=== PATIENT | female | born 1965 | race Caucasian/White ===

== ENCOUNTER 2018-07-05 15:17 | Observation (INO) | payer MEDICARE ==
--- NOTE | ~2018-07-05 | OP ---
PATIENT NAME: CARMEN FRANKEL MEDICAL RECORD: [id number] :69 LOCATION:[facility] ADMISSION DATE:07/05/18 SURGEON: SANGEETA HOLBROOK MD DATE OF OPERATION: 07/06/2018 DATE OF SERVICE: 07/06/2018 PROCEDURES: 1. Left heart catheterization. 2. Selective coronary angiography. 3. Left ventriculogram. INDICATION: Chest pain compatible with angina. PROCEDURE IN DETAIL: After informed consent was obtained and after a detailed description of risks, benefits as well as alternative therapies, the patient elected to proceed with angiogram and heart catheterization. The right radial area was prepped and draped in normal sterile fashion. Right radial artery was cannulated via modified Seldinger technique with placement of 5-Welsh sheath. All catheters exchanged through this sheath. FINDINGS: Left ventriculogram was performed in standard 30-degree EASTON view, reveals good cardiac wall motion throughout all segments. Overall ejection fraction estimated 60%. SELECTIVE CORONARY ANGIOGRAPHY: Left main, left anterior descending, left circumflex, right coronary artery are all smooth-walled vessels with no angiographic evidence of coronary artery disease. OVERALL IMPRESSION: 1. No angiographic evidence of coronary artery disease. 2. Normal left heart pressures. 3. Normal left ventricular systolic function. Chest pain is noncardiac in etiology. No further cardiac workup needs to be ascertained. TRANSINT:[id number] Voice Confirmation ID: [id number] DOCUMENT ID: [id number] SANGEETA HOLBROOK MD at 0924 CC: [id number] DICTATION DATE: 07/06/18 1257 DIRECTOR GRAPHICS: 07/06/18 1310 DIS IN 07/06/18 [id number] [place] [address]
--- NOTE | ~2018-07-05 | HEMODYNAMI ---
PATIENT:CARMEN FRANKEL MEDICAL RECORD: [id number] : 69 LOCATION:[facility]2114 ADMISSION DATE: 07/05/18 Generatedon:07/06/201812:58 Patient name: CARMEN FRANKEL Patient #: [id number] SSN: DO B: 1965 Date of study: 07/06/2018 Page: Of Hemodynamic Procedure Report Patient Data Patient Demographics Procedure consent was obtained First Name: CARMEN Gender: Female Last Name: JOSTIN : 1965 Patient #: [id number] Age: 52 year(s) Race: Unknown Additional ID: [id number] Contact details [address]: [address] [place] [address] State: [place] City: [place] Zip code: [address] Past Medical History Allergies Allergen Reaction Date Comments Reported Other allergy 07/06/2018 CIPRO, TETANUS, Penicillins 07/06/2018 Admission Admission Data Admission Date: 07/05/2018 Admission Time: 17:44 Room #: 2114 Procedure Procedure Types Cath Procedure Diagnostic Procedure LHC LHC w/Coronaries Procedure Description Procedure Date Procedure Date: 07/06/2018 Procedure Start Time: 12:45 Procedure End Time: 12:57 Procedure Staff Name Function Home Casey MD Performing Physician Yolanda Caruso RT Monitor Laura Pitts RN Nurse Abraham Smith RT Scrub Procedure Data Cath Procedure Fluoroscopy Diagnostic fluoroscopy Total fluoroscopy Time: 1.4 time: 1.4 min min Diagnostic fluoroscopy Total fluoroscopy dose: 354 dose: 354 mGy mGy Contrast Material Contrast Material Type Amount (ml) Isovue 300 45 Entry Location Entry Primary Successful Side Size Upsize Upsize Entry Closure Gill ccessful Closure Location (Fr) 1 (Fr) 2 (Fr) Remarks Device Remarks Radial Right 6 Fr Mechanical artery Short Compression Estimated blood loss: 5 ml Diagnostic catheters Device Type Used For End Catheter Placement DIAGNOSTIC Freeman 110cm 5 LV Angiography Fr catheter ([id number]) DIAGNOSTIC Freeman 110cm 5 Left Coronary Fr catheter ([id number]) Angiography DIAGNOSTIC Freeman 110cm 5 Right Coronary Fr catheter ([id number]) Angiography Procedure Complications No complications Procedure Medications Medication Administration Route Dosage 0.9% NaCl I.V. 100 ml/hr Oxygen etCO2 Nasal cannula 2 l/min Lidocaine 2% added to field 20 Heparin Flush Bag added to field 2 bags (1000units/500ml NS) Versed I.V. 2 mg Fentanyl 100 mcg Versed I.V. 1 mg Hemodynamics Rest Heart Rate: 72 (bpm) Pressure Samples Time Site Value (mmHg) Purpose Heart Use Rate(bpm) 12:49 LV 117/5,12 Snapshot 86 Snapshots Pre Cath Intra NCS Post Cath Vital Signs Time Heart Resp SPO2 etCO2 NIBP (mmHg) Rhythm Pain Sedation Rate (ipm) (%) (mmHg) Status Level (bpm) 12:30:40 71 16 95 27 128/78(104) NSR 0 (11) 10(A) , No pain 12:34:55 73 10 97 31.5 129/79(101) NSR 0 (11) 10(A) , No pain 12:39:12 75 13 96 27.8 125/78(105) NSR 0 (11) 10(A) , No pain 12:43:27 73 12 97 30 130/78(102) NSR 0 (11) 10(A) , No pain 12:47:42 75 12 96 27 123/77(101) NSR 0 (11) 10(A) , No pain 12:51:54 87 10 98 25.5 111/76(92) NSR 0 (11) 10(A) , No pain 12:56:13 82 12 90 27 111/68(93) NSR 0 (11) 10(A) , No pain Medications Time Medication Route Dose Verified Delivered Reason Notes Eff ectiveness by by 12:34:50 0.9% NaCl I.V. 100 Home Laura used for ml/hr Jacinto Pitts senior cytotechnologist 12:34:59 Oxygen etCO2 2 Home Laura used for Nasal l/min Jacinto Pitts procedure cannula RN 12:35:07 Lidocaine 2% added 20ml Home Bhat for local to vial Jacinto Casey MD anesthetic field 12:35:14 Heparin Flush added 2 Home Home used for Bag to bags Jacinto Casey MD procedure (1000units/500ml field NS) 12:44:19 Fentanyl 100 Home Sanchez for mcg Jacinto Pitts sedation RN 12:44:51 Versed I.V. 2 mg Home Sanchez for Jacinto Pitts sedation RN 12:49:33 Versed I.V. 1 mg Home Sanchez for Jacinto Pitts sedation elevator installer Log Time Note 12:07:44 Time tracking: Regular hours (M-F 7:00 - 5:00) 12:07:49 Plan of Care:Hemodynamics will remain stable., Cardiac rhythm will remain stable., Comfort level will be maintained., Respiratory function will remain adequate., Patient/ family verbilizes understanding of procedure., Procedure tolerated without complication., Recovers from procedure without complications.. 12:11:03 Yolanda Counts RT(R) sent for patient. Start room use. 12:23:21 Patient received from Med II to CCL 1 Alert and oriented. Tansferred to table in Supine position. 12:23:22 Warm blankets applied, and jose f hugger turned on for patient comfort. 12:23:23 Correct patient and procedure confirmed by team. 12:23:24 Signed procedure consent form obtained from patient. 12:23:38 ER H&P FROM DIONI ON CHART COMPLETED ON 07/05/18 12:23:38 H&P Date Dictated: 07/05/2018 Within 30 days and on chart.. 12:23:48 Pre-procedure instructions explained to patient. 12:23:49 Pre-op teaching completed and patient verbalized understanding. 12:23:50 Family in waiting room. 12:23:52 Patient NPO since Midnight. 12:23:54 ECG and BP/O2 sat monitors applied to patient. 12:29:35 Vital chart was started 12:34:27 Full Disclosure recording started 12:34:35 Rhythm: sinus rhythm 12:34:38 Baseline sample Acquired. 12:34:50 0.9% NaCl 100 ml/hr I.V. was administered by Laura Pitts RN; used for procedure; 12:34:59 Oxygen 2 l/min etCO2 Nasal cannula was administered by Laura Pitts RN; used for procedure; 12:34:59 Patient allergic to Other allergyCIPRO, TETANUS, 12:35:06 Patient allergic to Penicillins 12:35:07 Lidocaine 2% 20ml vial added to field was administered by Home Casey MD; for local anesthetic; 12:35:14 Heparin Flush Bag (1000units/500ml NS) 2 bags added to field was administered by Home Casey MD; used for procedure; 12:38:22 Is the patient allergic to Iodine/contrast media? No. 12:38:23 Is patient on blood thinner?No 12:38:32 Patient diabetic? Yes. 12:38:33 If diabetic: On Metformin? Yes 12:38:37 If on Metformin: Last Dose? 07/05/2018 12:38:42 Previous problem with sedation/anesthesia? No ? 12:38:45 Snore? Yes 12:38:46 Sleep apnea? No 12:38:47 Deviated septum? No 12:38:48 Opens mouth fully? Yes 12:38:49 Sticks out tongue? Yes 12:38:51 Airway obstruction? No ? 12:38:54 Dentures? No ? 12:38:58 Pre procedure: right dorsailis pedis pulse 2+ Normal; easily identifiable; not easily obliterated 12:38:59 Modified Dm's test Ulnar < 7 seconds 12:39:01 Patient pain scale 0/10 ?. 12:39:07 IV patent on arrival in right forearm with 0.9% NaCl at O. 12:39:10 Lab results completed and on chart. 12:39:15 Right Radial & Right Groin area was prepped with chlora-prep and draped in sterile fashion 12:39:16 Alarms reviewed by R. N. 12:39:16 Sharps counted by scrub and verified by R.N. 12:39:18 Final Timeout: patient, procedure, and site verified with staff and physician. All members of the team are in agreement. 12:39:20 Right Radial & Right Groin site verified by team. 12:39:27 Physical assessment completed. ASA score P 2 - A patient with mild systemic disease as per Home Casey MD. 12:39:31 Sedation plan: IV Moderate Sedation Medication:Versed, Fentanyl 12:43:17 Use device set Radial Dx or PCI 12:43:18 ACIST Syringe (33853) opened to sterile field. 12:43:18 Medline Cath Pack ([id number]) opened to sterile field. 12:43:19 Bag Decanter (2002S) opened to sterile field. 12:43:19 DIAGNOSTIC WIRE .035 260cm J wire (908013) opened to sterile field. 12:43:20 ACIST Hand Control (25452) opened to sterile field. 12:43:20 ACIST Manifold (86954) opened to sterile field. 12:43:21 Tegaderm 4 x 4 (1626W) opened to sterile field. 12:43:22 MBrace Wrist Support ([id number]) opened to sterile field. 12:43:23 SHEATH 6Fr Prelude Radial ([id number]) opened to sterile field. 12:44:19 Fentanyl 100 mcg was administered by Laura Pitts RN; for sedation; 12:44:51 Versed 2 mg I.V. was administered by Laura Pitts RN; for sedation; 12:45:13 Procedure started. 12:45:19 Local anesthetic to right radial artery with Lidocaine 2% by Home Casey MD.INITIAL ACCESS ONLY 12:47:06 A 6 Fr Short sheath was inserted into the Right Radial artery 12:47:44 A DIAGNOSTIC Freeman 110cm 5 Fr catheter (145791) was advanced over the wire and used for LV Angiography. 12:49:33 Versed 1 mg I.V. was administered by Laura Pitts RN; for sedation; 12:49:52 LV gram done using EASTON 12:49:57 EF : 60 % 12:50:00 Injector settings: Ml/sec: 5, Volume: 15, 12:50:37 A DIAGNOSTIC Freeman 110cm 5 Fr catheter (124243) was advanced over the wire and used for Right Coronary Angiography. 12:50:45 A DIAGNOSTIC Freeman 110cm 5 Fr catheter (534910) was advanced over the wire and used for Left Coronary Angiography. 12:51:20 Catheter removed. 12:52:01 Sheath removed intact; hemostasis achieved with Mechanical Compression to the Right Radial artery. 12:52:05 Procedure ended.(Physican Out) 12:52:25 Fluoroscopy time 01.40 minutes. 12:52:29 Fluoroscopy dose: 354 mGy 12:52:29 Flurop Dose total: 354 12:52:35 Contrast amount:Isovue 300 45ml. 12:52:36 Sharps counted by scrub and verified by R.N. 12:52:41 Insertion/operative site no bleeding no hematoma. 12:52:52 Post right radial artery:stable, clean and dry 12:52:54 Post Procedure Pulses reassessed and unchanged 12:52:56 Post-procedure physical assessment completed. ASA score P 2 - A patient with mild systemic disease as per Home Casey MD. 12:52:58 TR BAND Standard ([id number]) opened to sterile field. 12:53:02 Post procedure rhythm: unchanged. 12:53:04 Estimated blood loss: 5 ml 12:53:06 Post procedure instruction explained to patient.Patient verbalizes understanding. 12:53:06 Patient needs reinforcement of post procedure teaching. 12:53:27 Procedure Complication : No complications 12:53:30 See physician's report for complete and final results. 12:53:44 Procedure and supply charges have been captured, reviewed, submitted and are correct. 12:53:46 Vital chart was stopped 12:54:49 Report given to Pre/Post Procedure Room. 12:57:36 Procedure ended. 12:57:36 Full Disclosure recording stopped 12:57:41 End room use (Document Last) 12:57:46 Patient transfered to Pre/Post Procedure Room with Stretcher. Device Usage Item Name Manufacture Quantity Catalog Number Hospital Part Current M inimal Lot# / Charge Number Stock Stock Serial# Code ACIST Syringe Acist 1 33265 198530 775110 316478 2 0 (92417) [employer] Medline Cath Cardinal 1 [id number] 138683 28522 260700 5 Pack Health ([id number]) Bag Decanter Microtek 1 2001S 724489 58366 493889 5 () Medical Inc. DIAGNOSTIC WIRE St Yandel 1 065438 069014 866265 302537 3 0 .035 260cm J wire (946326) ACIST Hand Acist 1 50945 857907 280744 492629 5 Control (42629) [employer] Inc ACIST Manifold Acist 1 19987 498144 110755 731112 5 (06865) Medical Systems Inc Tegaderm 4 x 4 3M 1 1626W 043677 779895 701038 5 (1626W) MBrace Wrist Advanced 1 140-0250-00 758283 26412 187720 5 Support Vascular ([id number]) Dynamics SHEATH 6Fr Merit 1 [id number] 477930 253079 259184 5 Prelude Radial Medical ([id number]) DIAGNOSTIC Terumo 1 40-9490 773662 840239 962863 5 Freeman 110cm 5 Fr catheter (557817) TR BAND Terumo 1 [id number] 107283 066390 192988 4 0 Standard ([id number]) Signature Audit [place] Stage Time Signature Unsigned Intra-Procedure 07/06/2018 Yolanda 12:58:20 PM Counts RT(R) Signatures Monitor : Yolanda Signature : Counts RT Date : Time : [place] [id number] [facility] [place] [address]
--- NOTE | ~2018-07-05 | DS ---
PATIENT:CARMEN FRANKEL :69 MEDICAL RECORD: [id number] DISCHARGE SUMMARY ADMISSION DATE: 07/05/18 DISCHARGE DATE: 07/06/18 DATE OF SERVICE: 07/06/2018 DIAGNOSES: 1. Chest pain. 2. Normal cardiac catheterization. 3. Diabetes. 4. Hypertension. 5. Hyperlipidemia. HOSPITAL COURSE: Ms. Frankel presents with chest pain. She has an abnormal ECG and multiple risk factors; however, cardiac catheterization reveals no significant coronary artery disease. Her chest pain is noncardiac in etiology. Follow up with her primary care physician in [place] for further evaluation of noncardiac chest pain. TRANSINT:[id number] Voice Confirmation ID: [id number] DOCUMENT ID: [id number] SANGEETA HOLBROOK MD at 0924 CC: [id number] DICTATION DATE: 07/06/18 1256 CLINICAL REVIEW NURSE: 07/06/18 2249 DIS IN 07/06/18 [id number] [place] [address]
[2018-07-05] MEDS ORDERED: FISH OIL 1,0001 CA1 PO (20:00)
[2018-07-05] MEDS ORDERED: CENTRUM SILVER1 EAC3 PO (20:00)
[2018-07-05] MEDS ORDERED: MINIVELLE1 EAC1 TRANSDERM (20:02)
[2018-07-05] MEDS ORDERED: TOPAMAX200 MG PO ×2 (20:03)
[2018-07-05] MEDS ORDERED: DILANTIN100 MG PO (20:04)
[2018-07-05] MEDS ORDERED: TRILEPTAL300 MG PO (20:04)
[2018-07-05] MEDS ORDERED: EFFEXOR75 MG PO (20:05)
[2018-07-05] MEDS ORDERED: METFORMIN HCL500 M1 PO (20:05)
[2018-07-05] MEDS ORDERED: GLIPIZIDE10 MG PO (20:06)
[2018-07-05] MEDS ORDERED: LIPITOR40 MG PO (20:06)
[2018-07-05] MEDS ORDERED: LISINOPRIL10 MG PO (20:07)
[2018-07-05] MEDS ORDERED: LEVOTHYROXINE150 MCG PO (20:07)
[2018-07-05] MEDS ORDERED: BAYER CHEWABLE81 MG PO (20:08)
[2018-07-05 23:12] VITALS: BP 132/72
[2018-07-06 02:38] VITALS: BP 108/63
[2018-07-06 06:07] VITALS: BP 129/85
== END 2018-07-06 15:20 | disposition home or self-care (01) ==
LOC: D.M2 15:17 → OBSVTIME 17:44 → D.CLR 17:44 → D.M2 17:44 → D.CLR 07-06 13:22
DX: R07.89 Other chest pain (principal); E11.9 Type 2 diabetes mellitus without complications; I10 Essential (primary) hypertension; E78.5 Hyperlipidemia, unspecified